=== PATIENT | male | born 1985 | race African-American/Black ===

== ENCOUNTER 2020-12-31 14:17 | Emergency (ER) | payer OTHER ==
[2020-12-31 15:00] LABS: ANION GAP 11.3 mEq/L (7-13); CHLORIDE,CL 105 mmol/L (98-107); SODIUM,NA 141 mmol/L (136-145)
--- NOTE | 2020-12-31 15:00 | CR ---
EXAMINATION: Chest 1V Frontal SEX: Male AGE: 35 years CLINICAL HISTORY: 35-year-old male complaining of CHEST PAIN. Comparison CXR October 2009. Interpretation: Negative. No new cardiopulmonary abnormality. 1. Necklace foreign body. 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 2. Normal cardiac silhouette. No pulmonary vascular congestion, cephalization of flow, alveolar edema or pleural effusion. 3. No new lung mass or hilar lymphadenopathy. 4. No alveolar infiltrate, atelectasis/collapse or peripheral "groundglass" interstitial lung densities. 5. No pneumothorax or pneumomediastinum. No free subdiaphragmatic air. 6. Bony thorax unremarkable. Left-sided aortic arch.
--- NOTE | 2020-12-31 15:04 | EDM.PDOC ---
ED HPI GENERAL MEDICAL PROBLEM - General Stated Complaint: TIGHTNESS IN CHEST / TOUGH BREATHING Time Seen by Provider: 12/31/20 14:50 Source of Information: Reports: Patient History Limitations: Reports: No Limitations - History of Present Illness INITIAL COMMENTS - FREE TEXT/NARRATIVE: This 35 yo male patient reports to the ED due to a 3 day history of increased chest tightness. 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 The patient reports he has been staying in [place] at [facility] and has noticed increased chest tightness over the past 3 days as well as he has noticed some nasal congestion. The patient has not taken any over the counter medications for temporary symptom relief. Duration: Day(s):, Constant, Getting Worse Location: Reports: Chest Quality: Reports: Dull Severity: Moderate Improves with: Reports: None Worsens with: Reports: None Associated Symptoms: Reports: Shortness of Breath Treatments COURT REPORTER: Reports: EKG, IV/IO Epigastric Pain Score (Numeric/FACES): 3 - Related Data Allergies Allergy/AdvReac Type Severity Reaction Status Date / Time No Known Allergies Allergy Verified 12/31/20 14:47 Home Meds: Home Meds . [No Known Home Meds] 12/31/20 [History] Past Medical History HEENT History: Reports: Impaired Vision Cardiovascular History: Reports: None Respiratory History: Reports: None Gastrointestinal History: Reports: None Genitourinary History: Reports: None Musculoskeletal History: Reports: None Neurological History: Reports: None Psychiatric History: Reports: None Endocrine/Metabolic History: Reports: None Hematologic History: Reports: None Immunologic History: Reports: None Oncologic (Cancer) History: Reports: None Dermatologic History: Reports: None - Infectious Disease History Infectious Disease History: Reports: None - Past Surgical History Head Surgeries/Procedures: Reports: None HEENT Surgical History: Reports: Other (See Below) Other HEENT Surgeries/Procedures: hx wisdom teeth extraction Social & Family History - Tobacco Use Tobacco Use Status *Q: Never Tobacco User - Caffeine Use Caffeine Use: Reports: Tea - Recreational Drug Use Recreational Drug Use: No ED ROS GENERAL - Review of Systems Review Of Systems: Comprehensive ROS is negative, except as noted in HPI. ED EXAM, GENERAL - Physical Exam Exam: See Below Exam Limited By: No Limitations General Appearance: Alert, WD/WN, Moderate Distress Eye Exam: Bilateral Eye: EOMI, Normal Inspection, PERRL Ears: Normal External Exam, Normal Canal, Hearing Grossly Normal, Normal TMs Nose: Normal Inspection, Normal Mucosa, No Blood Throat/Mouth: Normal Inspection, Normal Lips, Normal Teeth, Normal Gums, Normal Oropharynx, Normal Voice, No Airway Compromise Head: Atraumatic, Normocephalic Neck: Normal Inspection, Supple, Non-Tender, Full Range of Motion Respiratory/Chest: No Respiratory Distress, Lungs Clear, Normal Breath Sounds, No Accessory Muscle Use, Chest Non-Tender Cardiovascular: Normal Peripheral Pulses, Regular Rate, Rhythm, No Edema, No Gallop, No JVD, No Murmur, No Rub (Male) Exam: Deferred Rectal (Males) Exam: Deferred Back Exam: Normal Inspection, Full Range of Motion, NT Extremities: Normal Inspection, Normal Range of Motion, Non-Tender, Normal Capillary Refill, No Pedal Edema Neurological: Alert, Oriented, CN II-XII Intact, Normal Cognition, Normal Gait, Normal Reflexes, No Motor/Sensory Deficits Psychiatric: Normal Affect, Normal Mood Skin Exam: Warm, Dry, Intact, Normal Color, No Rash Lymphatic: No Adenopathy Course - Vital Signs Last Recorded V/S: Last Vital Signs Temp 36.3 C 12/31/20 14:37 Pulse 82 12/31/20 14:37 Resp 18 12/31/20 14:37 BP 124/91 H 12/31/20 14:37 Pulse Ox 100 12/31/20 14:37 - Orders/Labs/Meds Labs: Laboratory Tests 12/31/20 12/31/20 Range/Units 14:33 14:33 WBC 5.1 (5.0-10.0) 10^3/uL RBC 6.12 (4.6-6.2) 10^6/uL Hgb 15.4 (14.0-18.0) g/dL Hct 45.1 (40.0-54.0) % MCV 73.7 L (80-100) fL MCH 25.2 L (27.0-34.0) pg MCHC 34.1 (33.0-35.0) g/dL Plt Count 317 (150-450) 10^3/uL Neut % (Auto) 58.9 (42.2-75.2) % Lymph % (Auto) 25.8 (20.5-50.1) % [place] % (Auto) 9.6 H (2-8) % Eos % (Auto) 4.5 H (1.0-3.0) % Baso % (Auto) 1.2 H (0.0-1.0) % Sodium 141 (136-145) mmol/L Potassium 4.3 (3.5-5.1) mmol/L Chloride 105 (98-107) mmol/L Carbon Dioxide 29 (21-32) mmol/L Anion Gap 11.3 (7-13) mEq/L BUN 11 (7-18) mg/dL Creatinine 1.07 (0.70-1.30) mg/dL Est Cr Clr Drug Dosing 90.09 mL/min Estimated GFR (MDRD) > 60 BUN/Creatinine Ratio 10.3 (No establ ref range) Glucose 97 (70-99) mg/dL Calcium 8.5 (8.5-10.1) mg/dL Total Bilirubin 0.6 (0.2-1.0) mg/dL AST 30 (15-37) U/L ALT 48 (16-63) U/L Alkaline Phosphatase 80 (46-116) U/L Troponin I < 0.017 (0.000-0.056) ng/mL Total Protein 7.6 (6.4-8.2) g/dL Albumin 3.9 (3.4-5.0) g/dL Globulin 3.7 Albumin/Globulin Ratio 1.1 Departure - Departure Time of Disposition: 15:11 Disposition: Home, Self-Care 01 Condition: Fair Clinical Impression: Environmental allergies Instructions: Allergies, Adult, [employer]-[employer] Forms: ED Department Discharge Care Plan Goals: The patient was advised of the examination, lab, EKG and chest x-ray results during the visit. The patient was encouraged to take a 2nd generation antihistamine (Claritin or Zyrtec) for symptom relief. Claritin has the least amount of side effects (tiredness). If the patient has any additional symptoms or concerns, the patient was encouraged to either return to the emergency department or visit his primary care facility. Sepsis Event Note (ED) - Evaluation Sepsis Screening Result: No Definite Risk - Focused Exam Vital Signs: Vital Signs Temp Pulse Resp BP Pulse Ox 12/31/20 14:37 36.3 C 82 18 124/91 H 100
== END 2020-12-31 15:33 | disposition home or self-care (01) ==
LOC: DL.ED 14:17
DX: J30.2 Other seasonal allergic rhinitis (principal)
CPT/HCPCS: 36415; 71045; 80053; 84484; 85025; 93005; 99282; 99285-25